=== PATIENT | male | born 1955 | race Asian ===

== ENCOUNTER → 2023-09-07 06:24 | Day surgery (SDC) | payer OTHER, SELFPAY | LOC: GI 06:24 | PROVIDERS: ATTENDING PHYSICIAN Specialist | DX: Z12.11 Encounter for screening for malignant neoplasm of colon (principal); K31.89 Other diseases of stomach and duodenum; K31.A0 Gastric intestinal metaplasia, unspecified; D12.3 Benign neoplasm of transverse colon; K31.9 Disease of stomach and duodenum, unspecified | CPT/HCPCS: 45380; 43239; 88305; 88342 ==